=== PATIENT | male | born 1980 | race Caucasian/White ===

== ENCOUNTER 2022-04-21 10:09 | Emergency (ER) | payer OTHER ==
[2022-04-21 10:32] VITALS: BP 166/99; PULSE 98; RESP 20; TEMP 99; BMI 33.9
[2022-04-21] MEDS ORDERED: methylPREDNISolone NA SUCC 125 MG/2 ML VIAL IVPUSH ONE (10:32)
[2022-04-21] MEDS ORDERED: methylPREDNISolone NA SUCC 125 MG/2 ML VIAL ONE (10:47)
== END 2022-04-21 12:57 | disposition home or self-care (01) ==
LOC: FER 10:09
PROC: 3E033GC Introduction of Other Therapeutic Substance into Peripheral Vein, Percutaneous Approach (ICD-10-PCS; principal; 2022-04-21)
DX: R22.0 Localized swelling, mass and lump, head (principal)
CPT/HCPCS: 99284-25